=== PATIENT | male | born 1955 | race Caucasian/White ===

== ENCOUNTER 2018-06-01 21:38 | Inpatient (IN) ==
[2018-06-02] MEDS ORDERED: Aluminum/Magnesium/Simethacone Susp 30 ML UDC PO ONE (01:57)
[2018-06-02] MEDS ORDERED: Morphine Sulfate Inj 8 MG/ML Vial IV.PUSH ONE (01:57)
[2018-06-02 02:01] LABS: Hematocrit 36.7 % (39.0-51.0); Hemoglobin 12.1 gm/dL (13.0-17.0); Mean Corpuscular Hemoglobin 27.3 pg (27.0-34.0); Mean Corpuscular Volume 82.6 fL (80.0-100.0); Mean Platelet Volume 6.7 fL (7.0-11.0); Platelet Count 596 th/mm3 (150-450); Red Blood Count 4.44 mil/mm3 (4.50-5.90); Red Cell Distribution Width 16.2 % (11.6-17.2); White Blood Count 12.8 th/mm3 (4.0-11.0)
[2018-06-02 02:18] LABS: Alanine Aminotransferase 18 U/L (12-78); Anion Gap 8 meq/L (5-15); Aspartate Aminotransferase 14 U/L (15-37); Blood Urea Nitrogen 14 mg/dL (7-18); Calcium 8.8 mg/dL (8.5-10.1); Carbon Dioxide 27.3 meq/L (21.0-32.0); Chloride 102 meq/L (98-107); Glucose,Random 111 mg/dL (74-106); Potassium 3.8 meq/L (3.5-5.1); Sodium 137 meq/L (136-145)
[2018-06-02 02:21] LABS: Alkaline Phosphatase 90 U/L (45-117); Lipase 11843 U/L (73-393); Total Protein 8.2 g/dL (6.4-8.2)
[2018-06-02] MEDS ORDERED: Morphine Inj 4 MG/ML Vial IV.PUSH ONE (02:30)
--- NOTE | 2018-06-02 02:55 | ED ---
HPI General Chief Complaint: Abdominal Pain Stated Complaint: stomach cramps Time Seen by Provider: 06/02/18 01:43 Source: patient Mode of arrival: ambulatory Limitations: no limitations History of Present Illness HPI narrative: 62-year-old male arrives to the ED with complaint of epigastric abdominal pain. It is severe. Duration about 24 hours. Pain can come and go. He reports history of heartburn and has been compliant with omeprazole. Nausea is reported. No vomiting. No diarrhea. No fever. Patient reports taking NSAIDs for the last few days in preparation for dental work. Patient is a feels different than heartburn. Her bowel movements are essentially unchanged. No similar prior episode has occurred. Patient reports drinking about 4 alcoholic beverages nightly. MD complaint: abdominal pain Onset (ago): minute(s) Pain Consistency: constant and other (Intermittent episodes of severe pain reported, 10/10 at worst) Related Data Home Medications Medication Instructions Recorded Confirmed atorvastatin [Lipitor] 20 mg PO DAILY 06/02/18 06/02/18 finasteride 5 mg PO DAILY 06/02/18 06/02/18 hydrochlorothiazide 25 mg PO DAILY 06/02/18 06/02/18 losartan 50 mg PO BID 06/02/18 06/02/18 Allergies Allergy/AdvReac Type Severity Reaction Status Date / Time diclofenac Allergy Severe CRAMPS AND Verified 06/02/18 01:38 VOIMTING etodolac Allergy Severe CRAMPS AND Verified 06/02/18 01:38 VOIMTING flurbiprofen Allergy Severe CRAMPS AND Verified 06/02/18 01:38 VOIMTING ibuprofen Allergy Severe CRAMPS AND Verified 06/02/18 01:38 VOIMTING indomethacin Allergy Severe CRAMPS AND Verified 06/02/18 01:38 VOIMTING ketoprofen Allergy Severe CRAMPS AND Verified 06/02/18 01:38 VOIMTING ketorolac Allergy Severe CRAMPS AND Verified 06/02/18 01:38 VOIMTING naproxen Allergy Severe CRAMPS AND Verified 06/02/18 01:38 VOIMTING oxaprozin Allergy Severe CRAMPS AND Verified 06/02/18 01:38 VOIMTING Review of Systems ROS: all other systems reviewed are negative [facility] Medical History Medical History BPH (benign prostatic hyperplasia) (Acute) HTN (hypertension) (Acute) Hyperlipidemia (Acute) Social History Social History Substance History: No History of Abuse Smoking Status: Former smoker Tobacco Type: Cigarettes How Often Do You Have a Drink Containing Alcohol: 4 or more times a week Recent Travel in [facility] within the Last 8 Weeks: No Recent Out of Country Travel within the Last 8 Weeks: No Immunization History Tetanus Immunization: <5 Years Hx Influenza Vaccine This Season: Yes Exam Narrative Exam Narrative: GENERAL: This is a 62-year-old male well-nourished well- developed mild distress secondary to pain SKIN: Focused skin assessment warm/dry. HEAD: Atraumatic. Normocephalic. EYES: Pupils equal and round. No scleral icterus. No injection or drainage. ENT: No nasal bleeding or discharge. Mucous membranes pink and moist. NECK: Trachea midline. No JVD. CARDIOVASCULAR: Regular rate and rhythm. No murmur appreciated. RESPIRATORY: No accessory muscle use. Clear to auscultation. Breath sounds equal bilaterally. GASTROINTESTINAL: Soft. Tenderness palpation epigastrium. MUSCULOSKELETAL: No obvious deformities. No clubbing. No cyanosis. No edema. NEUROLOGICAL: Awake and alert. No obvious cranial nerve deficits. Motor grossly within normal limits. Normal speech. PSYCHIATRIC: Appropriate mood and affect; insight and judgment normal. Course Initial Documented Vital Signs Temperature 97.7 F 06/01/18 23:39 Pulse Rate 98 H 06/01/18 23:39 Respiratory Rate 17 06/01/18 23:39 Blood Pressure 164/76 H 06/01/18 23:39 Pulse Oximetry 99 06/01/18 23:39 Last Documented Vital Signs Temperature 97.7 F 06/01/18 23:39 Pulse Rate 93 H 06/01/18 23:43 Respiratory Rate 18 06/01/18 23:43 Blood Pressure 173/89 H 06/01/18 23:43 Pulse Oximetry 100 06/01/18 23:43 Medical Decision Making MDM Narrative Medical decision making narrative: Patient has pancreatitis. He has no history of pancreatitis. Etiology is unclear however alcohol induced pancreatitis certainly consideration. Mild persistent pain reported at 3:25 AM. Additional morphine ordered, 4 mg. Medical Screen Exam Complete: Yes Emergency Medical Condition: Yes Differential Diagnosis Differential Diagnosis: Gastritis, pancreatitis, appendicitis, acute cholecystitis, ascending cholangitis, AAA, perforated viscous, mesenteric ischemia, hepatitis, cystitis, hydronephrosis/hydroureter/nephroureter calculus , mesenteric adenitis, biliary colic Lab Data Lab results reviewed: Yes I reviewed the patient's lab results. Lab results narrative: Lipase is 11,843 LFTs are normal Result diagrams: 06/02/18 01:45 06/02/18 01:45 Lab Results 06/02/18 06/02/18 Range/Units 01:45 01:45 WBC 12.8 H (4.0-11.0) th/mm3 RBC 4.44 L (4.50-5.90) mil/mm3 Hgb 12.1 L (13.0-17.0) gm/dL Hct 36.7 L (39.0-51.0) % MCV 82.6 (80.0-100.0) fL MCH 27.3 (27.0-34.0) pg MCHC 33.0 (32.0-36.0) % RDW 16.2 (11.6-17.2) % Plt Count 596 H (150-450) th/mm3 MPV 6.7 L (7.0-11.0) fL Sodium 137 (136-145) meq/L Potassium 3.8 (3.5-5.1) meq/L Chloride 102 (98-107) meq/L Carbon Dioxide 27.3 (21.0-32.0) meq/L Anion Gap 8 (5-15) meq/L BUN 14 (7-18) mg/dL Creatinine 0.85 (0.60-1.30) mg/dL Random Glucose 111 H (74-106) mg/dL Calcium 8.8 (8.5-10.1) mg/dL Total Bilirubin 0.2 (0.2-1.0) mg/dL AST 14 L (15-37) U/L ALT 18 (12-78) U/L Alkaline Phosphatase 90 (45-117) U/L Total Protein 8.2 (6.4-8.2) g/dL Albumin 4.0 (3.4-5.0) g/dL Lipase 58820 H (73-393) U/L Imaging Data Attestation: I personally reviewed and interpreted this imaging study as follows : Radiologist's impression: Abdomen/Pelvis CT 06/02/18 01:57 CONCLUSION: 1. Nonspecific inflammatory stranding around the second and third portions of the duodenum possibly representing an acute duodenitis. 2. Diverticular disease of the descending and sigmoid colon without diverticulitis. Discharge Plan Discharge Disposition Patient Disposition: 30 Still Patient Physicians Team ED Provider: Nate Salinas Primary Care Provider: Primary Care Anais Duque Rxs /Orders / Referrals /Forms Prescriptions: No Action losartan 50 mg Tablet 50 mg PO BID RF: 0 atorvastatin [Lipitor] 20 mg Tablet 20 mg PO DAILY RF: 0 hydrochlorothiazide 25 mg Tablet 25 mg PO DAILY RF: 0 finasteride 5 mg Tablet 5 mg PO DAILY RF: 0 Discharge Interventions Interventions: Vital Signs Last Done: 06/01/18 23:43 Status ED Status: With Doctor
--- NOTE | 2018-06-02 03:08 | CT ---
EXAM DATE: 06/02/2018 2:46 AM EDT AGE/SEX: 62 years / Male INDICATIONS: Abdominal pain for 2 days with nausea and vomiting. CLINICAL DATA: This is the patient's initial encounter. Patient reports that signs and symptoms have been present for 2 days and indicates a pain score of 5/10. MEDICAL/SURGICAL HISTORY: Hypertension. Benign prostatic hyperplasia. None. ORAL CONTRAST: No oral contrast ingested. RADIATION DOSE: 6.81 CTDI (mGy) COMPARISON: No prior exams available for comparison. TECHNIQUE: Multiple contiguous axial images were obtained through the abdomen and pelvis following b olus infusion of 70 ml Omnipaque 350 (iohexol) nonionic water-soluble contrast as a single exam dos e. No oral contrast ingested. Using automated exposure control and adjustment of the mA and/or kV ac cording to patient size, radiation dose was kept as low as reasonably achievable to obtain optimal di agnostic quality images. DICOM format image data is available electronically for review and comparis on. FINDINGS: Lower Lungs: The visualized lower lungs are clear. Liver: The liver has a homogeneous density without space-occupying lesion. There is no dilation of th e biliary tree. Spleen: Homogeneous density without enlargement. Pancreas: Unremarkable without mass or calcification. Kidneys: Single subcentimeter calcification in the anterior midpole of the right kidney could be rel ated to the regional vasculature. Benign-appearing 9 mm cortical cyst in the lower pole posteriorly o n the right. Otherwise radiographically intact. Adrenal Glands: Unremarkable. Aorta: The aorta and proximal iliac vessels are grossly unremarkable without aneurysmal dilation. Bowel/Mesentery: Significant diverticular disease of the descending and sigmoid colon without divert iculitis. However, there is some inflammatory stranding around the second and third portions of the d uodenum. Nonspecific but could represent an acute duodenitis Abdominal Wall: Intact. Retroperitoneum: No evidence of adenopathy in the retrocrural, para-aortic, or deep pelvic regions. Bladder: Contours are smooth. Reproductive Organs: Some calcifications of the prostate Inguinal: The inguinal region is unremarkable without evidence of adenopathy. Bony Structures: Unremarkable. Post Contrast: No abnormal areas of enhancement seen. CONCLUSION: 1. Nonspecific inflammatory stranding around the second and third portions of the duodenum possibly representing an acute duodenitis. 2. Diverticular disease of the descending and sigmoid colon without diverticulitis. Electronically signed by: Isma Matthews MD 06/02/2018 3:07 AM EDT
[2018-06-02 03:35] LABS: Bilirubin,Urine Negative (Negative); Clarity,Urine Clear (Clear); Color,Urine Yellow (Yellw/Straw); Glucose,Urine (UA) Negative (Negative); Hyaline Casts,Urine 1 /lpf (0-3); Leukocyte Esterase,Urine Trace (Negative); Mucus,Urine Few /lpf (Occasional); Nitrite,Urine Negative (Negative); Specific Gravity,Urine 1.034 (1.002-1.035)
--- NOTE | 2018-06-02 03:51 | P.HPFP ---
History of Present Illness Primary Care Physician: No Primary Care Physician <Jovany Sewell - 06/02/18 14:10> No Primary Care Physician <Jorge Curiel - 06/02/18 03:51> History of Present Illness: 62-year-old male admitted for pancreatitis with a lipase of 11,843. He presented to the emergency department due to abdominal pain that was progressive over 2 days that he described as stabbing and 10 out of 10 on the pain scale in the epigastric region. He does have a history of heavy alcohol use or he states that he will have several mixed drinks as well as several beers every day. He denies symptoms of withdrawal or going through withdrawals in the past. He states prior to this episode, he has been relatively healthy without any acute illness. He denies fevers or chills. He denies nausea or vomiting. He denies changes in his bowel habits such as diarrhea or constipation. He denies melena or hematochezia. <Jovany Sewell - 06/02/18 14:10> Patient is a 62-year-old male with past history of hypertension, hyperlipidemia , BPH, GERD who presents today for abdominal pain. This pain does not feel like his normal GERD pain. Reports his abdominal pain has been present for approximately 24 hours, stabbing, in the upper middle of his abdomen, rated a 10 out of 10 prior to receiving morphine, improved mildly at this time. He states he threw up one time yesterday, none since. Denies diarrhea, constipation, nausea, additional vomiting, fever, chills, chest pain, shortness of breath, left arm or jaw pain, lightheadedness, dizziness, change in vision, dysuria, changes in urine color or smell. He reports he drinks several beers daily, as well as 1 or more cocktails a day, more if his friends are over. He drinks daily, cannot remember the last time he went more than 1 day without drinking. Denies withdrawal symptoms in the past. History Medical: HTN, HLD, BPH, GERD Surgical: Shoulder , Knee arthroscopy, hemorrhoidectomy Family: Father: Unknown Mother: Passed from bone marrow cancer Social EtOH: Drink a few beers and cocktails, daily Tobacco: Smoke 1PPD for 46 years Drugs:None <Jorge Curiel - 06/02/18 04:41> - Diagnosis (1) Pancreatitis (2) Alcohol dependence (3) Oral infection (4) HTN (hypertension) (5) HLD (hyperlipidemia) (6) BPH (benign prostatic hyperplasia) (7) GERD (gastroesophageal reflux disease) (8) Nutrition, metabolism, and development symptoms (9) DVT prophylaxis <Jovany Sewell 06/02/18 14:10> (1) Pancreatitis (2) Alcohol dependence (3) HTN (hypertension) (4) HLD (hyperlipidemia) (5) BPH (benign prostatic hyperplasia) (6) GERD (gastroesophageal reflux disease) <Jorge Curiel 06/02/18 04:41> Inpatient Certification: I certify that the inpatient services were ordered in accordance with Medicare regulations governing the order. This includes certification that hospital inpatient services are reasonable and necessary and in the case of services not specified as inpatient-only under 42 CFR 419.22(n), that they are appropriately provided as inpatient services in accordance to with the 2-midnight benchmark under 43 CFR 412.3(e) <Jovany Sewell 06/02/18 14:10> Review of Systems Constitutional: Denies body ache(s), Denies chills, Denies fever(s), Denies headache(s), Denies increased appetite, Denies weakness <Jorge Curiel 04:41> Eyes: Denies blind spots, Denies blurry vision, Denies change in vision, Denies double vision, Denies discharge, Denies loss of vision <Jorge Curiel 04:41> Ears, Nose, Mouth, and Throat: Denies abnormal hearing, Denies change in voice, Denies nosebleed, Denies sinus pain <Jorge Curiel 06/02/18 04:41> Cardiovascular: Denies chest pain, Denies excessive sweating, Denies fainting, Denies fast heart rate, Denies generalized swelling, Denies irregular heart rhythm, Denies lightheadedness, Denies rapid, pounding, or irregular heartbeat, Denies shortness of breath <Jorge Curiel 06/02/18 04:41> Respiratory: Denies cough, Denies shortness of breath, Denies wheezing <Jorge Curiel 06/02/18 04:41> Gastrointestinal: Reports abdominal pain, Denies black, tarry stools, Denies bright, red blood in stools, Denies change in bowel habits, Denies change in stools, Denies constipation, Denies nausea, Denies vomiting <Jorge Curiel 06/02/18 04:41> Genitourinary: Denies blood in urine, Denies painful urination, Denies urinary frequency <Jorge Curiel 06/02/18 04:41> Musculoskeletal: Denies abnormal walking, Denies body aches <Jorge Curiel 06/02/18 04:41> Skin/Breast: Denies skin ulcer, Denies sores <Jorge Curiel 06/02/18 04: 41> Neurologic: Denies abnormal hearing, Denies abnormal speech, Denies burning sensations, Denies confusion, Denies fainting, Denies frequent falls, Denies loss of vision <Jorge Curiel 06/02/18 04:41> Psychiatric: Denies anxiety, Denies confusion <Jorge Curiel 06/02/18 04: 41> Endocrine: Denies cold intolerance, Denies excessive sweating, Denies flushing <Jorge Curiel 06/02/18 04:41> Hematologic/Lymphatic: Denies easy bleeding, Denies easy bruising <Jorge Curiel 06/02/18 04:41> PMFSH - History History Provided By: Patient <Jorge Curiel 06/02/18 03:51> - Medical History Medical History: Medical History (Last Updated 06/01/18 @ 23:42 by Adrien Rebolledo) BPH (benign prostatic hyperplasia) HTN (hypertension) Hyperlipidemia <Jovany Sewell 06/02/18 14:10> Medical History (Last Updated 06/01/18 @ 23:42 by Adrien Rebolledo) BPH (benign prostatic hyperplasia) HTN (hypertension) Hyperlipidemia <Jorge Curiel 06/02/18 03:51> - Tobacco History Smoking Status: Former smoker <Jorge Curiel 06/02/18 03:51> Tobacco Type: Cigarettes <Jorge Curiel 06/02/18 03:51> - Alcohol History How Often Do You Have a Drink Containing Alcohol: 4 or more times a week < Jorge Curiel 06/02/18 03:51> - Substance Use History Substance History: No History of Abuse <Jorge Curiel - 06/02/18 03:51> - Travel History Recent Travel in the [place] Within the Last 8 Weeks: No <Jorge Curiel 06/02 03:51> Recent Travel Out of the Country Within the Last 8 Weeks: No <Jorge Curiel 06/02/18 03:51> - Immunization History Tetanus Immunization: <5 Years <Jorge Curiel 06/02/18 03:51> Hx Influenza Vaccine This Season: Yes <Jorge Curiel 06/02/18 03:51> Medications and Allergies Allergies Allergy/AdvReac Type Severity Reaction Status Date / Time diclofenac Allergy Severe CRAMPS AND Verified 06/02/18 01:38 VOIMTING etodolac Allergy Severe CRAMPS AND Verified 06/02/18 01:38 VOIMTING flurbiprofen Allergy Severe CRAMPS AND Verified 06/02/18 01:38 VOIMTING ibuprofen Allergy Severe CRAMPS AND Verified 06/02/18 01:38 VOIMTING indomethacin Allergy Severe CRAMPS AND Verified 06/02/18 01:38 VOIMTING ketoprofen Allergy Severe CRAMPS AND Verified 06/02/18 01:38 VOIMTING ketorolac Allergy Severe CRAMPS AND Verified 06/02/18 01:38 VOIMTING naproxen Allergy Severe CRAMPS AND Verified 06/02/18 01:38 VOIMTING oxaprozin Allergy Severe CRAMPS AND Verified 06/02/18 01:38 VOIMTING <Jovany Sewell - 06/02/18 14:10> Home Medications Medication Instructions Recorded Confirmed Type amlodipine [Norvasc] 10 mg PO DAILY 06/02/18 06/02/18 History atorvastatin [Lipitor] 20 mg PO HS 06/02/18 06/02/18 History finasteride 5 mg PO DAILY 06/02/18 06/02/18 History hydrochlorothiazide 25 mg PO DAILY 06/02/18 06/02/18 History losartan 50 mg PO BID 06/02/18 06/02/18 History <Jovany Sewell - 06/02/18 14:10> Active Medications: Active Medications Amlodipine Besylate (Norvasc) 10 mg PO DAILY [facility] Last Admin: 06/02/18 08:42 Dose: 10 mg Atorvastatin Calcium (Lipitor) 20 mg PO DAILY [facility] Last Admin: 06/02/18 08:42 Dose: 20 mg Clonidine HCl (Catapres) 0.1 mg PO Q6H PRN PRN Reason: BP >180/110 Finasteride (Proscar) 5 mg PO DAILY [facility] Last Admin: 06/02/18 08:43 Dose: 5 mg Flumazenil (Romazecon Inj) 0.2 mg IV.PUSH Q1M PRN PRN Reason: OVERSEDATION Haloperidol Lactate (Haldol Inj) 1 mg IV.PUSH Q15M PRN PRN Reason: for severe agitation Heparin Sodium (Porcine) (Heparin Inj) 5,000 units SQ Q12HR [facility] Last Admin: 06/02/18 08:43 Dose: 5,000 units Hydrochlorothiazide (Hydrodiuril) 25 mg PO DAILY [facility] Last Admin: 06/02/18 08:43 Dose: 25 mg Lactated Ringer's (Lr 1000 Ml Inj) 1,000 mls @ 176 mls/hr IV.CONT .Q5H41M [facility] Last Admin: 06/02/18 11:40 Dose: 176 mls/hr Lorazepam (Ativan) 1 mg PO Q4H PRN PRN Reason: for CIWA 8-10 Lorazepam (Ativan) 2 mg PO Q2H PRN PRN Reason: for CIWA 11-14 Lorazepam (Ativan Inj) 2 mg IV.PUSH Q2H PRN PRN Reason: for CIWA 11-14 Lorazepam (Ativan Inj) 2 mg IV.PUSH Q1H PRN PRN Reason: for CIWA 15-20 Lorazepam (Ativan Inj) 2 mg IV.PUSH Q15M PRN PRN Reason: for CIWA > 20 Lorazepam (Ativan Inj) 1 mg IV.PUSH Q4H PRN PRN Reason: for CIWA 8-10 Losartan Potassium (Cozaar) 50 mg PO BID [facility] Last Admin: 06/02/18 08:43 Dose: 50 mg Morphine Sulfate (Morphine Inj) 4 mg IV.PUSH Q3H PRN PRN Reason: BREAKTHROUGH PAIN Naloxone HCl (Narcan Inj) 0.4 mg IV.PUSH UNSCH PRN PRN Reason: SEE LABEL COMMENTS Ondansetron HCl (Zofran Inj) 4 mg IV.PUSH Q6H PRN PRN Reason: NAUSEA OR VOMITING Last Admin: 06/02/18 06:02 Dose: 4 mg Oxycodone/Acetaminophen (Percocet 10/325 Mg) 1 tab PO Q6H PRN PRN Reason: PAIN SCALE 6 TO 10 Last Admin: 06/02/18 11:40 Dose: 1 tab Oxycodone/Acetaminophen (Percocet 5/325 Mg) 1 tab PO Q6H PRN PRN Reason: PAIN SCALE 3 TO 5 Penicillin V Potassium (Veetids) 500 mg PO Q6HR [facility] Last Admin: 06/02/18 12:09 Dose: 500 mg Sodium Chloride (Ns Flush) 2 ml IV.FLUSH BID [facility] Last Admin: 06/02/18 08:43 Dose: Not Given Sodium Chloride (Ns Flush) 2 ml IV.FLUSH PRN PRN PRN Reason: FLUSH AFTER USING IV ACCESS <Jovany Sewell - 06/02/18 14:10> Exam Vital signs: Vital Signs 06/01/18 23:39 06/01/18 23:43 06/02/18 05:30 Temperature 97.7 F 98.3 F Pulse Rate 98 H 93 H 85 Respiratory Rate 17 18 18 Blood Pressure 164/76 H 173/89 H 161/80 H Pulse Oximetry 99 100 96 06/02/18 07:00 06/02/18 08:00 06/02/18 12:00 Temperature 98.2 F 98.1 F Pulse Rate 87 100 H Respiratory Rate 20 20 19 Blood Pressure 151/78 H 136/76 Pulse Oximetry 95 93 L Intake & Output 06/01/18 06/02/18 06/02/18 18:59 06:59 18:59 Intake Total 1999 Balance 1999 Weight 77.1 kg Intake: IV 1999 NS Inj 1,000 ML @ 176 mls/hr IV 1999 .CONT .Q5H41M [facility] Rx#:[id number] Other: Date of Last Bowel Movement 06/01/18 06/01/18 Weight On Admission 77.1 kg <Jovany Sewell - 06/02/18 14:10> Vital Signs 06/01/18 23:39 06/01/18 23:43 Temperature 97.7 F Pulse Rate 98 H 93 H Respiratory Rate 17 18 Blood Pressure 164/76 H 173/89 H Pulse Oximetry 99 100 Intake & Output 06/01/18 06/01/18 06/02/18 06:59 18:59 06:59 Weight 77.111 kg <Jorge Curiel - 06/02/18 03:51> Narrative: General: Lying in bed in no obvious distress Skin: No obvious lesions, no telangiectasias, no caput medusa Abdomen: Soft, distended with moderate pain in the right upper quadrant and epigastric region. No rebound or guarding CV: Regular rate and rhythm without murmur Pulmonary: Her to auscultation bilaterally without overt rhonchi or rales <Jovany Sewell - 06/02/18 14:10> GENERAL: Laying in bed, resting comfortably SKIN: Warm and dry. HEAD: Atraumatic. Normocephalic. EYES: Pupils equal and round. No scleral icterus. No injection or drainage. ENT: No nasal bleeding or discharge. Mucous membranes pink and moist. NECK: Trachea midline. No JVD. CARDIOVASCULAR: Regular rate and rhythm. RESPIRATORY: No accessory muscle use. Clear to auscultation. Breath sounds equal bilaterally. GASTROINTESTINAL: Abdomen soft, nondistended. Tender in mid epigastric area. No rebound. Negative Rovsing's, McBurney's, Nelson's. Hepatic and splenic margins not palpable. MUSCULOSKELETAL: Extremities without clubbing, cyanosis, or edema. No obvious deformities. NEUROLOGICAL: Awake and alert. No obvious cranial nerve deficits. Motor grossly within normal limits. Five out of 5 muscle strength in the arms and legs. Normal speech. PSYCHIATRIC: Appropriate mood and affect; insight and judgment normal. <Jorge Curiel - 06/02/18 04:41> Results - Labs Result diagrams: 06/02/18 01:45 06/02/18 01:45 <DonatoJovany - 06/02/18 14:10> Abnormal lab results 06/02/18 06/02/18 06/02/18 Range/Units 01:45 01:45 03:15 WBC 12.8 H (4.0-11.0) th/mm3 RBC 4.44 L (4.50-5.90) mil/mm3 Hgb 12.1 L (13.0-17.0) gm/dL Hct 36.7 L (39.0-51.0) % Plt Count 596 H (150-450) th/mm3 MPV 6.7 L (7.0-11.0) fL Random Glucose 111 H (74-106) mg/dL AST 14 L (15-37) U/L Lipase 05550 H (73-393) U/L Urine Protein 30 H (Neg-Trace) mg/dL Ur Leukocyte Esterase Trace H (Negative) Urine Mucus Few H (Occasional) /lpf Short CBC 06/02/18 Range/Units 01:45 WBC 12.8 H (4.0-11.0) th/mm3 Hgb 12.1 L (13.0-17.0) gm/dL Hct 36.7 L (39.0-51.0) % Plt Count 596 H (150-450) th/mm3 BMP 06/02/18 01:45 Sodium 137 Potassium 3.8 Chloride 102 Carbon Dioxide 27.3 BUN 14 Creatinine 0.85 Calcium 8.8 Liver Function 06/02/18 Range/Units 01:45 Total Bilirubin 0.2 (0.2-1.0) mg/dL AST 14 L (15-37) U/L ALT 18 (12-78) U/L Alkaline Phosphatase 90 (45-117) U/L Albumin 4.0 (3.4-5.0) g/dL Urine 06/02/18 Range/Units 03:15 Urine Color Yellow (Yellw/Straw) Urine Clarity Clear (Clear) Urine pH 6.0 (5.0-8.5) Ur Specific [place] 1.034 (1.002-1.035) Urine Protein 30 H (Neg-Trace) mg/dL Urine Glucose (UA) Negative (Negative) mg/dL <Jovany Sewell - 06/02/18 14:10> Abnormal lab results 06/02/18 06/02/18 06/02/18 Range/Units 01:45 01:45 03:15 WBC 12.8 H (4.0-11.0) th/mm3 RBC 4.44 L (4.50-5.90) mil/mm3 Hgb 12.1 L (13.0-17.0) gm/dL Hct 36.7 L (39.0-51.0) % Plt Count 596 H (150-450) th/mm3 MPV 6.7 L (7.0-11.0) fL Random Glucose 111 H (74-106) mg/dL AST 14 L (15-37) U/L Lipase 74471 H (73-393) U/L Urine Protein 30 H (Neg-Trace) mg/dL Ur Leukocyte Esterase Trace H (Negative) Urine Mucus Few H (Occasional) /lpf Short CBC 06/02/18 Range/Units 01:45 WBC 12.8 H (4.0-11.0) th/mm3 Hgb 12.1 L (13.0-17.0) gm/dL Hct 36.7 L (39.0-51.0) % Plt Count 596 H (150-450) th/mm3 BMP 06/02/18 01:45 Sodium 137 Potassium 3.8 Chloride 102 Carbon Dioxide 27.3 BUN 14 Creatinine 0.85 Calcium 8.8 Liver Function 06/02/18 Range/Units 01:45 Total Bilirubin 0.2 (0.2-1.0) mg/dL AST 14 L (15-37) U/L ALT 18 (12-78) U/L Alkaline Phosphatase 90 (45-117) U/L Albumin 4.0 (3.4-5.0) g/dL Urine 06/02/18 Range/Units 03:15 Urine Color Yellow (Yellw/Straw) Urine Clarity Clear (Clear) Urine pH 6.0 (5.0-8.5) Ur Specific [place] 1.034 (1.002-1.035) Urine Protein 30 H (Neg-Trace) mg/dL Urine Glucose (UA) Negative (Negative) mg/dL <Jorge Curiel - 06/02/18 03:51> - Imaging Impressions Abdomen/Pelvis CT 06/02/18 01:57 CONCLUSION: 1. Nonspecific inflammatory stranding around the second and third portions of the duodenum possibly representing an acute duodenitis. 2. Diverticular disease of the descending and sigmoid colon without diverticulitis. <Jovany Sewell - 06/02/18 14:10> Impressions Abdomen/Pelvis CT 06/02/18 01:57 CONCLUSION: 1. Nonspecific inflammatory stranding around the second and third portions of the duodenum possibly representing an acute duodenitis. 2. Diverticular disease of the descending and sigmoid colon without diverticulitis. <Jorge Curiel - 06/02/18 03:51> Caprini VTE Risk Assessment Caprini VTE Risk Assessment: Moderate/High Risk (score >= 2) <Jorge Curiel - 06/02/18 03:51> [place] Risk Assessment Model: Point Value = 1 Point Value = 2 Point Value = 3 Point Value = 5 Age 41-60 Minor surgery BMI > 25 kg/m2 Swollen legs Varicose veins or History of unexplained or recurrent spontaneous Oral contraceptives or hormone replacement Sepsis (< 1 month) Serious lung disease, including pneumonia (< 1 month) Abnormal pulmonary function Acute myocardial infarction Congestive heart failure (< 1 month) History of inflammatory bowel disease Medical patient at bed rest Age 61-74 Arthroscopic surgery Major open surgery (> 45 min) Laparoscopic surgery (> 45 min) Malignancy Confined to bed (> 72 hours) Immobilizing plaster cast Central venous access Age >= 75 History of VTE Family history of VTE Factor V Leiden Prothrombin [id number] Lupus anticoagulant Anticardiolipin antibodies Elevated serum homocysteine Heparin-induced thrombocytopenia Other congenital or acquired thrombophilia Stroke (< 1 month) Elective arthroplasty Hip, pelvis, or leg fracture Acute spinal cord injury (< 1 month) <Jovany Sewell - 06/02/18 14:10> Point Value = 1 Point Value = 2 Point Value = 3 Point Value = 5 Age 41-60 Minor surgery BMI > 25 kg/m2 Swollen legs Varicose veins or History of unexplained or recurrent spontaneous Oral contraceptives or hormone replacement Sepsis (< 1 month) Serious lung disease, including pneumonia (< 1 month) Abnormal pulmonary function Acute myocardial infarction Congestive heart failure (< 1 month) History of inflammatory bowel disease Medical patient at bed rest Age 61-74 Arthroscopic surgery Major open surgery (> 45 min) Laparoscopic surgery (> 45 min) Malignancy Confined to bed (> 72 hours) Immobilizing plaster cast Central venous access Age >= 75 History of VTE Family history of VTE Factor V Leiden Prothrombin [id number] Lupus anticoagulant Anticardiolipin antibodies Elevated serum homocysteine Heparin-induced thrombocytopenia Other congenital or acquired thrombophilia Stroke (< 1 month) Elective arthroplasty Hip, pelvis, or leg fracture Acute spinal cord injury (< 1 month) <Jorge Curiel - 06/02/18 03:51> Prophylaxis Regimen: Total Risk Factor Score Risk Level Prophylaxis Regimen 0-1 Low Early ambulation 2 Moderate Order ONE of the following: *Sequential Compression Device (SCD) *Heparin 5000 units SQ BID 3-4 Higher Order ONE of the following medications: *Heparin 5000 units SQ TID *Enoxaparin/Lovenox 40 mg SQ daily (WT < 150 kg, CrCl > 30 mL/min) *Enoxaparin/Lovenox 30 mg SQ daily (WT < 150 kg, CrCl > 10-29 mL/min) *Enoxaparin/Lovenox 30 mg SQ BID (WT < 150 kg, CrCl > 30 mL/min) AND/OR *Sequential Compression Device (SCD) 5 or more Highest Order ONE of the following medications: *Heparin 5000 units SQ TID (Preferred with Epidurals) *Enoxaparin/Lovenox 40 mg SQ daily (WT < 150 kg, CrCl > 30 mL/min) *Enoxaparin/Lovenox 30 mg SQ daily (WT < 150 kg, CrCl > 10-29 mL/min) *Enoxaparin/Lovenox 30 mg SQ BID (WT < 150 kg, CrCl > 30 mL/min) AND *Sequential Compression Device (SCD) <Jovany Sewell - 06/02/18 14:10> Total Risk Factor Score Risk Level Prophylaxis Regimen 0-1 Low Early ambulation 2 Moderate Order ONE of the following: *Sequential Compression Device (SCD) *Heparin 5000 units SQ BID 3-4 Higher Order ONE of the following medications: *Heparin 5000 units SQ TID *Enoxaparin/Lovenox 40 mg SQ daily (WT < 150 kg, CrCl > 30 mL/min) *Enoxaparin/Lovenox 30 mg SQ daily (WT < 150 kg, CrCl > 10-29 mL/min) *Enoxaparin/Lovenox 30 mg SQ BID (WT < 150 kg, CrCl > 30 mL/min) AND/OR *Sequential Compression Device (SCD) 5 or more Highest Order ONE of the following medications: *Heparin 5000 units SQ TID (Preferred with Epidurals) *Enoxaparin/Lovenox 40 mg SQ daily (WT < 150 kg, CrCl > 30 mL/min) *Enoxaparin/Lovenox 30 mg SQ daily (WT < 150 kg, CrCl > 10-29 mL/min) *Enoxaparin/Lovenox 30 mg SQ BID (WT < 150 kg, CrCl > 30 mL/min) AND *Sequential Compression Device (SCD) <Jorge Curiel - 06/02/18 03:51> Assessment and Plan - Assessment (1) Pancreatitis Code(s): K85.90 - Acute pancreatitis without necrosis or infection, unspecified Status: Acute Plan: Acute pancreatitis with lipase of 11,843 likely secondary to alcohol intake Lipid panel shows an LDL of 65 with triglycerides of 84 Patient is [facility] Continue IV fluids with lactated Ringer's at 1.5 maintenance rate Pain control: Percocet 5/325 every 6 hours as needed for pain 3-5 Percocet 10/325 every 6 hours as needed for pain 6-10 Morphine 4 mg IV every 3 hours as needed for breakthrough pain Modified bowel rest with sips of liquids and advance to liquid diet as tolerated (2) Alcohol dependence Code(s): F10.20 - Alcohol dependence, uncomplicated Status: Acute Plan: Monitor for withdrawals and patient is on [facility] protocol (3) Oral infection Code(s): K12.2 - Cellulitis and abscess of mouth Status: Acute (4) HTN (hypertension) Code(s): I10 - Essential (primary) hypertension Status: Acute (5) HLD (hyperlipidemia) Code(s): E78.5 - Hyperlipidemia, unspecified Status: Acute (6) BPH (benign prostatic hyperplasia) Code(s): N40.0 - Benign prostatic hyperplasia without lower urinary tract symptoms Status: Acute (7) GERD (gastroesophageal reflux disease) Code(s): K21.9 - Gastro-esophageal reflux disease without esophagitis Status: Acute (8) Nutrition, metabolism, and development symptoms Code(s): R63.8 - Other symptoms and signs concerning food and fluid intake Status: Acute (9) DVT prophylaxis Status: Acute <Jovany Sewell - 06/02/18 14:10> (1) Pancreatitis Code(s): K85.90 - Acute pancreatitis without necrosis or infection, unspecified Status: Acute Plan: Patient with pancreatitis. No previous episodes. Likely secondary to alcohol. Lipase 22140 on admission. -Follow-up lipid panel -Fluids at 5 mL/kg/h -Morphine pain scale -N.p.o. for now, can advance as tolerated (2) Alcohol dependence Code(s): F10.20 - Alcohol dependence, uncomplicated Status: Acute Plan: History of daily alcohol use, no previous withdrawal symptoms. Has not been off of alcohol for extended amount time. -[facility] protocol (3) HTN (hypertension) Code(s): I10 - Essential (primary) hypertension Status: Acute Plan: History of hypertension. -Continue hydrochlorothiazide 25 mg daily, losartan 50 mg twice daily (4) HLD (hyperlipidemia) Code(s): E78.5 - Hyperlipidemia, unspecified Status: Acute Plan: History of hyperlipidemia -Continue atorvastatin 20 mg daily (5) BPH (benign prostatic hyperplasia) Code(s): N40.0 - Benign prostatic hyperplasia without lower urinary tract symptoms Status: Acute Plan: History of BPH. -Continue finasteride 5 mg daily (6) GERD (gastroesophageal reflux disease) Code(s): K21.9 - Gastro-esophageal reflux disease without esophagitis Status: Acute Plan: History of GERD -Continue omeprazole 40 mg daily <Jorge Curiel - 06/02/18 04:41> - Attending Attestation The exam, history, and the medical decision-making described in the above note were completed with the assistance of the resident physician. I reviewed and agree with the findings presented. I attest that I had a [id number] encounter with the patient on the same day, and personally performed and documented my assessment and findings in the medical record. <Jovany Sewell - 06/02/18 14:10>
[2018-06-02] MEDS ORDERED: Naloxone Inj 0.4 MG/ML Vial IV.PUSH PRN ×2 (04:23→10:54)
[2018-06-02] MEDS ORDERED: Morphine Sulfate Inj 2 MG/ML Vial IV.PUSH PRN (04:23)
[2018-06-02] MEDS ORDERED: Haloperidol Inj 5 MG/ML Ampul IV.PUSH PRN (04:36)
[2018-06-02] MEDS ORDERED: LORazepam 1 MG Tablet PO PRN (04:36)
[2018-06-02 04:43] LABS: Chol/HDL Ratio 2.56 Ratio; HDL Cholesterol 52.3 mg/dL (40.0-60.0)
[2018-06-02] MEDS: Sod Chloride 0.9% Inj 1,000 ML IV.CONT SCH ×3 (06:02→14:17)
[2018-06-02] MEDS: Morphine Inj 4 MG/ML Vial IV.PUSH PRN ×4 (06:02→21:41)
[2018-06-02] MEDS: amLODIPine 10 MG Tablet PO SCH (08:42)
[2018-06-02] MEDS: Finasteride 5 MG Tablet PO SCH (08:43)
[2018-06-02] MEDS: hydroCHLOROthiazide 25 MG Tablet PO SCH (08:43)
[2018-06-02] MEDS: Heparin - SQ 10,000 UNITS/ML Vial SQ SCH ×2 (08:43→21:40)
--- NOTE | 2018-06-02 11:16 | P.PNFP ---
Subjective Interval history: Patient seen and examined this morning. No acute events overnight per nursing staff. Patient states that since being admitted, his pain has improved. He continues to report intermittent pain superior to his umbilicus that radiates around both sides of his body to his back. He states that he is approximately 50% better and is very thirsty this morning. He feels that the morphine worked for approximately 2 out of 3 hours, but the last hour he is in need of more medication. We briefly discussed his past medical history and home medications. Patient does report a chronic history of alcohol use drinking multiple mixed drinks as well as a few beers per day. He reports no prior hospitalizations for alcohol withdrawal with his last alcoholic drink coming yesterday afternoon. He also reports that he had a tooth extracted earlier this week and was placed on antibiotic therapy, however he is unsure of the medication at this time, but does state that it is "some type of penicillin." Otherwise he has no acute complaints and denies any fevers, chills, chest pain, NVD, abdominal pain, tremor, diaphoresis, visual/auditory hallucinations, or calf tenderness. Results - Labs Result diagrams: 06/02/18 01:45 06/02/18 01:45 Abnormal lab results 06/02/18 06/02/18 06/02/18 Range/Units 01:45 01:45 03:15 WBC 12.8 H (4.0-11.0) th/mm3 RBC 4.44 L (4.50-5.90) mil/mm3 Hgb 12.1 L (13.0-17.0) gm/dL Hct 36.7 L (39.0-51.0) % Plt Count 596 H (150-450) th/mm3 MPV 6.7 L (7.0-11.0) fL Random Glucose 111 H (74-106) mg/dL AST 14 L (15-37) U/L Lipase 73415 H (73-393) U/L Urine Protein 30 H (Neg-Trace) mg/dL Ur Leukocyte Esterase Trace H (Negative) Urine Mucus Few H (Occasional) /lpf Short CBC 06/02/18 Range/Units 01:45 WBC 12.8 H (4.0-11.0) th/mm3 Hgb 12.1 L (13.0-17.0) gm/dL Hct 36.7 L (39.0-51.0) % Plt Count 596 H (150-450) th/mm3 BMP 06/02/18 01:45 Sodium 137 Potassium 3.8 Chloride 102 Carbon Dioxide 27.3 BUN 14 Creatinine 0.85 Calcium 8.8 Liver Function 06/02/18 Range/Units 01:45 Total Bilirubin 0.2 (0.2-1.0) mg/dL AST 14 L (15-37) U/L ALT 18 (12-78) U/L Alkaline Phosphatase 90 (45-117) U/L Albumin 4.0 (3.4-5.0) g/dL Urine 06/02/18 Range/Units 03:15 Urine Color Yellow (Yellw/Straw) Urine Clarity Clear (Clear) Urine pH 6.0 (5.0-8.5) Ur Specific [place] 1.034 (1.002-1.035) Urine Protein 30 H (Neg-Trace) mg/dL Urine Glucose (UA) Negative (Negative) mg/dL - Imaging Impressions Abdomen/Pelvis CT 06/02/18 01:57 CONCLUSION: 1. Nonspecific inflammatory stranding around the second and third portions of the duodenum possibly representing an acute duodenitis. 2. Diverticular disease of the descending and sigmoid colon without diverticulitis. Physical Exam Vital signs: Vital Signs 06/01/18 23:39 06/01/18 23:43 06/02/18 05:30 Temperature 97.7 F 98.3 F Pulse Rate 98 H 93 H 85 Respiratory Rate 17 18 18 Blood Pressure 164/76 H 173/89 H 161/80 H Pulse Oximetry 99 100 96 06/02/18 07:00 Temperature 98.2 F Pulse Rate 87 Respiratory Rate 20 Blood Pressure 151/78 H Pulse Oximetry 95 Intake & Output 06/01/18 06/02/18 06/02/18 18:59 06:59 18:59 Intake Total 1000 / 1000 Balance 1000 / 1000 Weight 77.1 kg Intake: IV 1000 / 1000 NS Inj 1,000 ML @ 335 mls/hr IV 1000 / 1000 .CONT .Q3H [facility] Rx#:[id number] Other: Date of Last Bowel Movement 06/01/18 Weight On Admission 77.1 kg Narrative: GENERAL: Well-nourished, well-developed male lying in bed watching television in no acute distress. SKIN: Warm and dry. No rash. HEENT: Atraumatic, normocephalic with extraocular motions intact. No rhinorrhea. No visible lymphadenopathy or jugulovenous distension appreciated. CARDIOVASCULAR: Regular rate and rhythm without obvious murmurs, gallops, or rubs. 2+ pulses in all four extremities. RESPIRATORY: Expiratory and inspiratory wheezing bilaterally. No increased work of breathing. No crackles or rhonchi. GASTROINTESTINAL: Abdomen soft with positive bowel sounds in all 4 quadrants. Patient tender to deep palpation just superior to the umbilicus and in the left upper quadrant focally. No guarding. No tenderness at McBurney's point. Negative Nelson sign. Patient endorses pain with testing rebound tenderness. MUSCULOSKELETAL: No cyanosis or edema. No calf tenderness. Ambulating well per report. NEURO/PSYCH: Afocal. Awake, alert, and oriented x3. Normal speech and judgement. No tremor, diaphoresis, auditory/visual hallucinations, or paresthesia appreciated. Assessment and Plan - Assessment (1) Pancreatitis Code(s): K85.90 - Acute pancreatitis without necrosis or infection, unspecified Status: Acute Plan: Patient with pancreatitis. No previous episodes. Likely secondary to alcohol. -Lipase 68442 on admission. -Lipid panel within normal limits -Patient states that he has thirsty and would like to attempt clear liquid diet at this time Medications: -LR at 176 mL/kg/h (1.5 maintenance fluids) -Oxycodone 5 mg as needed for pain 1-5/oxycodone 10 mg as needed for pain 6-10 -Morphine 4 mg as needed as needed for breakthrough pain or unable to take oral medications -Naloxone on as needed for respiratory depression (2) Alcohol dependence Code(s): F10.20 - Alcohol dependence, uncomplicated Status: Acute Plan: History of daily alcohol use, no previous withdrawal symptoms. Last drink on . -[facility] protocol (3) Oral infection Code(s): K12.2 - Cellulitis and abscess of mouth Status: Acute Plan: Patient reporting recent procedure for abscessed tooth. Patient also reports he is to be on a "penicillin antibiotic every 6 hours." -Patient initially met sepsis criteria with leukocytosis and tachycardia with suspected site of infection being his oral cavity, lactic acid was not obtained -Patient does not meet sepsis criteria at this time Medications: -Penicillin 500mg Q6H (4) HTN (hypertension) Code(s): I10 - Essential (primary) hypertension Status: Acute Plan: History of hypertension. -Continue amlodipine 10 mg daily, hydrochlorothiazide 25 mg daily, losartan 50 mg twice daily (5) HLD (hyperlipidemia) Code(s): E78.5 - Hyperlipidemia, unspecified Status: Acute Plan: History of hyperlipidemia -Lipid panel within normal limits -Continue atorvastatin 20 mg daily (6) BPH (benign prostatic hyperplasia) Code(s): N40.0 - Benign prostatic hyperplasia without lower urinary tract symptoms Status: Acute Plan: History of BPH. -Continue finasteride 5 mg daily (7) GERD (gastroesophageal reflux disease) Code(s): K21.9 - Gastro-esophageal reflux disease without esophagitis Status: Acute Plan: History of GERD -Continue omeprazole 40 mg daily (8) Nutrition, metabolism, and development symptoms Code(s): R63.8 - Other symptoms and signs concerning food and fluid intake Status: Acute Plan: Diet: Clear liquid diet as tolerated Fluids: LR at 176 milliliters per hour Electrolytes: Within normal limits, continue to monitor and replete as necessary -Prophylaxis: CIWA protocol, Naloxone as needed for respiratory depression, Zofran as needed for nausea/vomiting, clonidine as needed for blood pressure greater than 180/110 (9) DVT prophylaxis Status: Acute Plan: -SCDs Medications: Heparin 5000 units every 12 hours
[2018-06-02] MEDS: oxyCODONE/Acetaminophen 10/325 Tablet PO PRN ×3 (11:40→23:55)
[2018-06-03] MEDS: Morphine Inj 4 MG/ML Vial IV.PUSH PRN ×2 (04:05→06:54)
[2018-06-03] MEDS: oxyCODONE/Acetaminophen 10/325 Tablet PO PRN ×3 (05:38→17:45)
[2018-06-03 05:47] LABS: Baso # (Auto) 0.1 th/mm3 (0.0-0.2); Baso % (Auto) 0.5 % (0.0-2.0); Eos # (Auto) 0.2 th/mm3 (0.0-0.4); Eos % (Auto) 1.6 % (0.0-4.0); Hematocrit 33.2 % (39.0-51.0); Lymph # (Auto) 0.9 th/mm3 (1.0-4.8); Lymph % (Auto) 7.4 % (9.0-44.0); Mean Corpuscular HGB Conc 33.2 % (32.0-36.0); Mean Corpuscular Hemoglobin 27.6 pg (27.0-34.0); Mean Corpuscular Volume 83.1 fL (80.0-100.0); Mean Platelet Volume 6.7 fL (7.0-11.0); Mono # (Auto) 0.9 th/mm3 (0.0-0.9); Mono % (Auto) 7.6 % (0.0-8.0); Neut # (Auto) 10.2 th/mm3 (1.8-7.7); Neut % (Auto) 82.9 % (16.0-70.0); Platelet Count 541 th/mm3 (150-450); Red Blood Count 3.99 mil/mm3 (4.50-5.90); Red Cell Distribution Width 16.4 % (11.6-17.2); White Blood Count 12.3 th/mm3 (4.0-11.0)
[2018-06-03 06:16] LABS: Anion Gap 11 meq/L (5-15); Blood Urea Nitrogen 6 mg/dL (7-18); Calcium 8.1 mg/dL (8.5-10.1); Carbon Dioxide 28.4 meq/L (21.0-32.0); Chloride 99 meq/L (98-107); Glomerular Filtration Rate Greater Than 89 mL/min (>89); Glucose,Random 83 mg/dL (74-106); Potassium 3.2 meq/L (3.5-5.1); Sodium 138 meq/L (136-145)
[2018-06-03] MEDS: Finasteride 5 MG Tablet PO SCH (10:41)
[2018-06-03] MEDS: hydroCHLOROthiazide 25 MG Tablet PO SCH (10:41)
[2018-06-03] MEDS: amLODIPine 10 MG Tablet PO SCH (10:41)
[2018-06-03] MEDS: Heparin - SQ 10,000 UNITS/ML Vial SQ SCH ×2 (10:42→21:50)
--- NOTE | 2018-06-03 11:39 | P.PNFP ---
Subjective Interval history: Patient seen and examined this morning by medical team. No acute events overnight per nursing staff. Patient states that he is doing well and feels "80 % better from admission." He states that his baseline pain has resolved, however he does have some right sided flank pain intermittently that is very sharp and exacerbated by movement. He denies any dysuria, hematuria at this time. Patient states that he tolerated the clear liquid diet well and is agreeable to progressing his diet. He expresses the desire to be discharged home today, however medical team discussed with patient he is requiring breakthrough morphine quite frequently as well as currently on maintenance fluids. Therefore medical team plans to de-escalate care, continue to monitor, with possible discharge late today versus early tomorrow morning pending clinical course. <Krzysztof De H - 06/03/18 11:39> Results - Labs Result diagrams: 06/03/18 05:20 06/03/18 05:20 <Jovany Sewell - 06/03/18 11:43> Abnormal lab results 06/03/18 06/03/18 Range/Units 05:20 05:20 WBC 12.3 H (4.0-11.0) th/mm3 RBC 3.99 L (4.50-5.90) mil/mm3 Hgb 11.0 L (13.0-17.0) gm/dL Hct 33.2 L (39.0-51.0) % Plt Count 541 H (150-450) th/mm3 MPV 6.7 L (7.0-11.0) fL Neut % (Auto) 82.9 H (16.0-70.0) % Lymph % (Auto) 7.4 L (9.0-44.0) % Neut # (Auto) 10.2 H (1.8-7.7) th/mm3 Lymph # (Auto) 0.9 L (1.0-4.8) th/mm3 Potassium 3.2 L (3.5-5.1) meq/L BUN 6 L (7-18) mg/dL Calcium 8.1 L (8.5-10.1) mg/dL Short CBC 06/03/18 Range/Units 05:20 WBC 12.3 H (4.0-11.0) th/mm3 Hgb 11.0 L (13.0-17.0) gm/dL Hct 33.2 L (39.0-51.0) % Plt Count 541 H (150-450) th/mm3 BMP 06/03/18 05:20 Sodium 138 Potassium 3.2 L Chloride 99 Carbon Dioxide 28.4 BUN 6 L Creatinine 0.78 Calcium 8.1 L <Jovany Sewell - 06/03/18 11:43> Abnormal lab results 06/03/18 06/03/18 Range/Units 05:20 05:20 WBC 12.3 H (4.0-11.0) th/mm3 RBC 3.99 L (4.50-5.90) mil/mm3 Hgb 11.0 L (13.0-17.0) gm/dL Hct 33.2 L (39.0-51.0) % Plt Count 541 H (150-450) th/mm3 MPV 6.7 L (7.0-11.0) fL Neut % (Auto) 82.9 H (16.0-70.0) % Lymph % (Auto) 7.4 L (9.0-44.0) % Neut # (Auto) 10.2 H (1.8-7.7) th/mm3 Lymph # (Auto) 0.9 L (1.0-4.8) th/mm3 Potassium 3.2 L (3.5-5.1) meq/L BUN 6 L (7-18) mg/dL Calcium 8.1 L (8.5-10.1) mg/dL Short CBC 06/03/18 Range/Units 05:20 WBC 12.3 H (4.0-11.0) th/mm3 Hgb 11.0 L (13.0-17.0) gm/dL Hct 33.2 L (39.0-51.0) % Plt Count 541 H (150-450) th/mm3 BMP 06/03/18 05:20 Sodium 138 Potassium 3.2 L Chloride 99 Carbon Dioxide 28.4 BUN 6 L Creatinine 0.78 Calcium 8.1 L <Krzysztof De H - 06/03/18 11:39> Physical Exam Vital signs: Vital Signs 06/02/18 12:00 06/02/18 16:00 06/02/18 20:00 Temperature 98.1 F 98.5 F 98.3 F Pulse Rate 100 H 89 95 H Respiratory Rate 19 20 18 Blood Pressure 136/76 138/73 121/70 Pulse Oximetry 93 L 94 L 96 06/03/18 00:00 06/03/18 04:00 06/03/18 08:00 Temperature 98.4 F 98.8 F 98.0 F Pulse Rate 93 H 93 H 88 Respiratory Rate 18 18 16 Blood Pressure 126/61 138/70 138/72 Pulse Oximetry 94 L 95 98 Intake & Output 06/02/18 06/03/18 06/03/18 18:59 06:59 18:59 Intake Total 3500 / 3500 1950 / 1950 Output Total 1000 / 1000 1550 / 1550 Balance 2500 / 2500 400 / 400 Weight 77 kg Intake: IV 3000 / 3000 1949 / 1949 LR 1000 mL Inj 1,000 ML @ 176 1000 / 1000 1950 / 1950 mls/hr IV.CONT .Q5H41M [facility] Rx#: [id number] NS Inj 1,000 ML @ 176 mls/hr IV 1999 .CONT .Q5H41M [facility] Rx#:[id number] Oral 500 / 500 Output: Urine 1000 / 1000 1550 / 1550 Other: Date of Last Bowel Movement 06/01/18 06/01/18 # Bowel Movements 0 <Donato,Jovany - 06/03/18 11:43> Vital Signs 06/02/18 12:00 06/02/18 16:00 06/02/18 20:00 Temperature 98.1 F 98.5 F 98.3 F Pulse Rate 100 H 89 95 H Respiratory Rate 19 20 18 Blood Pressure 136/76 138/73 121/70 Pulse Oximetry 93 L 94 L 96 06/03/18 00:00 06/03/18 04:00 06/03/18 08:00 Temperature 98.4 F 98.8 F 98.0 F Pulse Rate 93 H 93 H 88 Respiratory Rate 18 18 16 Blood Pressure 126/61 138/70 138/72 Pulse Oximetry 94 L 95 98 Intake & Output 06/02/18 06/03/18 06/03/18 18:59 06:59 18:59 Intake Total 3500 / 3500 1949 / 1950 Output Total 1000 / 1000 1550 / 1550 Balance 2500 / 2500 400 / 400 Weight 77 kg Intake: IV 3000 / 3000 1949 / 1950 LR 1000 mL Inj 1,000 ML @ 176 1000 / 1000 1949 / 1950 mls/hr IV.CONT .Q5H41M [facility] Rx#: [id number] NS Inj 1,000 ML @ 176 mls/hr IV 1999 .CONT .Q5H41M [facility] Rx#:[id number] Oral 500 / 500 Output: Urine 1000 / 1000 1550 / 1550 Other: Date of Last Bowel Movement 06/01/18 06/01/18 # Bowel Movements 0 <Krzysztof De H - 06/03/18 11:39> Narrative: GENERAL: Well-nourished, well-developed male lying in bed watching television in no acute distress. SKIN: Warm and dry. No rash. HEENT: Atraumatic, normocephalic with extraocular motions intact. No rhinorrhea. No visible lymphadenopathy or jugulovenous distension appreciated. CARDIOVASCULAR: Regular rate and rhythm without obvious murmurs, gallops, or rubs. 2+ pulses in all four extremities. RESPIRATORY: Mild expiratory and inspiratory wheezing bilaterally. No increased work of breathing. No crackles or rhonchi. GASTROINTESTINAL: Abdomen soft with positive bowel sounds in all 4 quadrants. Patient nontender in all 4 quadrants.. No guarding. No tenderness at McBurney' s point. Negative Nelson sign. Negative rebound tenderness. MUSCULOSKELETAL: No cyanosis or edema. No calf tenderness. Ambulating well per report. Patient endorses right flank pain worse with palpation. NEURO/PSYCH: Afocal. Awake, alert, and oriented x3. Normal speech and judgement. No tremor, diaphoresis, auditory/visual hallucinations, or paresthesia appreciated. <Krzysztof De H - 06/03/18 11:39> Assessment and Plan - Assessment (1) Pancreatitis Code(s): K85.90 - Acute pancreatitis without necrosis or infection, unspecified Status: Acute (2) Flank pain Code(s): R10.9 - Unspecified abdominal pain Status: Acute (3) Alcohol dependence Code(s): F10.20 - Alcohol dependence, uncomplicated Status: Acute (4) Oral infection Code(s): K12.2 - Cellulitis and abscess of mouth Status: Acute (5) HTN (hypertension) Code(s): I10 - Essential (primary) hypertension Status: Acute (6) HLD (hyperlipidemia) Code(s): E78.5 - Hyperlipidemia, unspecified Status: Acute (7) BPH (benign prostatic hyperplasia) Code(s): N40.0 - Benign prostatic hyperplasia without lower urinary tract symptoms Status: Acute (8) GERD (gastroesophageal reflux disease) Code(s): K21.9 - Gastro-esophageal reflux disease without esophagitis Status: Acute (9) Nutrition, metabolism, and development symptoms Code(s): R63.8 - Other symptoms and signs concerning food and fluid intake Status: Acute (10) DVT prophylaxis Status: Acute <Jovany Sewell - 06/03/18 11:43> (1) Pancreatitis Code(s): K85.90 - Acute pancreatitis without necrosis or infection, unspecified Status: Acute Plan: Patient with pancreatitis. No previous episodes. Likely secondary to alcohol. -Lipase 71033 on admission. -Lipid panel within normal limits -Diet advance to full liquid diet; nursing staff with order to advance diet to regular diet if patient tolerates full liquid lunch without complications Medications: -LR discontinued as patient is tolerating oral diet -Oxycodone 5 mg as needed for pain 1-5/oxycodone 10 mg as needed for pain 6-10 -Morphine as needed for breakthrough pain discontinued; attempt to avoid IV pain medication for possible discharge pending clinical course -Naloxone on as needed for respiratory depression (2) Flank pain Code(s): R10.9 - Unspecified abdominal pain Status: Acute Plan: Patient endorsing right-sided flank pain exacerbated by movement. Patient denies any hematuria or dysuria at this time. UA 06/02/18: 30 protein, trace leukocyte esterase, few mucus, otherwise negative (culture not indicated) UA 06/03/18: Pending (3) Alcohol dependence Code(s): F10.20 - Alcohol dependence, uncomplicated Status: Acute Plan: History of daily alcohol use, no previous withdrawal symptoms. Last drink on . -[facility] protocol (4) Oral infection Code(s): K12.2 - Cellulitis and abscess of mouth Status: Acute Plan: Patient reporting recent procedure for abscessed tooth. Patient also reports he is to be on a "penicillin antibiotic every 6 hours." -Patient initially met sepsis criteria with leukocytosis and tachycardia with suspected site of infection being his oral cavity, lactic acid was not obtained -Patient does not meet sepsis criteria at this time Medications: -Penicillin 500mg Q6H (5) HTN (hypertension) Code(s): I10 - Essential (primary) hypertension Status: Acute Plan: History of hypertension. -Continue amlodipine 10 mg daily, hydrochlorothiazide 25 mg daily, losartan 50 mg twice daily (6) HLD (hyperlipidemia) Code(s): E78.5 - Hyperlipidemia, unspecified Status: Acute Plan: History of hyperlipidemia -Lipid panel within normal limits -Continue atorvastatin 20 mg daily (7) BPH (benign prostatic hyperplasia) Code(s): N40.0 - Benign prostatic hyperplasia without lower urinary tract symptoms Status: Acute Plan: History of BPH. -Continue finasteride 5 mg daily (8) GERD (gastroesophageal reflux disease) Code(s): K21.9 - Gastro-esophageal reflux disease without esophagitis Status: Acute Plan: History of GERD -Continue omeprazole 40 mg daily (9) Nutrition, metabolism, and development symptoms Code(s): R63.8 - Other symptoms and signs concerning food and fluid intake Status: Acute Plan: Diet: Full liquid diet, nursing staff to advance to regular diet without pain/ complications when tolerating full liquid diet Fluids: Tolerating oral fluids Electrolytes: Within normal limits, continue to monitor and replete as necessary -Prophylaxis: [facility] protocol, Naloxone as needed for respiratory depression, Zofran as needed for nausea/vomiting, clonidine as needed for blood pressure greater than 180/110 (10) DVT prophylaxis Status: Acute Plan: -SCDs Medications: Heparin 5000 units every 12 hours <Krzysztof De - 06/03/18 11:31> - Attending Attestation Patient examined with resident physician and case discussed I have read the above note and agree with the assessment/plan as discussed with me I was involved in all medical decision making for this patient Jovany Sewell MD <Jovany Sewell - 06/03/18 11:43>
[2018-06-03 12:58] LABS: Bilirubin,Urine Negative (Negative); Clarity,Urine Clear (Clear); Color,Urine Straw (Yellw/Straw); Glucose,Urine (UA) Negative (Negative); Leukocyte Esterase,Urine Negative (Negative); Nitrite,Urine Negative (Negative); Specific Gravity,Urine 1.002 (1.002-1.035)
[2018-06-04] MEDS: oxyCODONE/Acetaminophen 10/325 Tablet PO PRN ×2 (06:24)
[2018-06-04 07:48] LABS: Baso % (Auto) 0.4 % (0.0-2.0); Eos # (Auto) 0.3 th/mm3 (0.0-0.4); Eos % (Auto) 2.6 % (0.0-4.0); Hematocrit 32.8 % (39.0-51.0); Hemoglobin 10.8 gm/dL (13.0-17.0); Lymph % (Auto) 9.4 % (9.0-44.0); Mean Corpuscular HGB Conc 33.1 % (32.0-36.0); Mean Corpuscular Hemoglobin 27.8 pg (27.0-34.0); Mean Corpuscular Volume 84.2 fL (80.0-100.0); Mean Platelet Volume 7.1 fL (7.0-11.0); Mono # (Auto) 0.8 th/mm3 (0.0-0.9); Mono % (Auto) 8.2 % (0.0-8.0); Neut # (Auto) 8.2 th/mm3 (1.8-7.7); Neut % (Auto) 79.4 % (16.0-70.0); Platelet Count 534 th/mm3 (150-450); Red Cell Distribution Width 16.5 % (11.6-17.2); White Blood Count 10.3 th/mm3 (4.0-11.0)
[2018-06-04 08:00] LABS: Anion Gap 9 meq/L (5-15); Blood Urea Nitrogen 7 mg/dL (7-18); Calcium 8.7 mg/dL (8.5-10.1); Chloride 100 meq/L (98-107); Glomerular Filtration Rate Greater Than 89 mL/min (>89); Glucose,Random 84 mg/dL (74-106); Potassium 3.6 meq/L (3.5-5.1); Sodium 137 meq/L (136-145)
[2018-06-04] MEDS ORDERED: Bisacodyl 10 MG Supp RECTAL PRN (08:40)
[2018-06-04] MEDS ORDERED: Senna/Docusate Sodium 8.6/50 MG Tablet PO SCH (09:00)
--- NOTE | 2018-06-04 10:18 | P.PNFP ---
Subjective Interval history: Patient seen and examined this morning. No acute events overnight. Patient states that his pain is completely resolved and like to be discharged home this morning. He reports that he tolerated a full diet both last night and this morning for breakfast. We discussed that it was likely his alcohol use that precipitated his pancreatitis. Patient was provided education on alcohol dependence and cessation. Patient states that he will "try to slow down on alcohol." He has passed a small amount of stool in continues to pass gas. He states that his chronic constipation and was previously placed on MiraLAX. Otherwise he has no acute complaints and denies a complete review of systems including but not limited to any fevers, chills, shortness of breath, chest pain , NVD, abdominal pain, or calf tenderness. <Krzysztof De H - 06/04/18 10:18> Results - Labs Result diagrams: 06/04/18 06:20 06/04/18 06:20 <Nemo Gu M - 06/04/18 12:51> Abnormal lab results 06/03/18 06/04/18 Range/Units 10:56 06:20 RBC 3.90 L (4.50-5.90) mil/mm3 Hgb 10.8 L (13.0-17.0) gm/dL Hct 32.8 L (39.0-51.0) % Plt Count 534 H (150-450) th/mm3 Neut % (Auto) 79.4 H (16.0-70.0) % [place] % (Auto) 8.2 H (0.0-8.0) % Neut # (Auto) 8.2 H (1.8-7.7) th/mm3 Urine Occult Blood Small H (Negative) Short CBC 06/04/18 Range/Units 06:20 WBC 10.3 (4.0-11.0) th/mm3 Hgb 10.8 L (13.0-17.0) gm/dL Hct 32.8 L (39.0-51.0) % Plt Count 534 H (150-450) th/mm3 BMP 06/04/18 06:20 Sodium 137 Potassium 3.6 Chloride 100 Carbon Dioxide 28.0 BUN 7 Creatinine 0.77 Calcium 8.7 Urine 06/03/18 Range/Units 10:56 Urine Color Straw (Yellw/Straw) Urine Clarity Clear (Clear) Urine pH 7.0 (5.0-8.5) Ur Specific [place] 1.002 (1.002-1.035) Urine Protein Negative (Neg-Trace) mg/dL Urine Glucose (UA) Negative (Negative) mg/dL <Nemo Gu M - 06/04/18 12:51> Abnormal lab results 06/03/18 06/04/18 Range/Units 10:56 06:20 RBC 3.90 L (4.50-5.90) mil/mm3 Hgb 10.8 L (13.0-17.0) gm/dL Hct 32.8 L (39.0-51.0) % Plt Count 534 H (150-450) th/mm3 Neut % (Auto) 79.4 H (16.0-70.0) % [place] % (Auto) 8.2 H (0.0-8.0) % Neut # (Auto) 8.2 H (1.8-7.7) th/mm3 Urine Occult Blood Small H (Negative) Short CBC 06/04/18 Range/Units 06:20 WBC 10.3 (4.0-11.0) th/mm3 Hgb 10.8 L (13.0-17.0) gm/dL Hct 32.8 L (39.0-51.0) % Plt Count 534 H (150-450) th/mm3 BMP 06/04/18 06:20 Sodium 137 Potassium 3.6 Chloride 100 Carbon Dioxide 28.0 BUN 7 Creatinine 0.77 Calcium 8.7 Urine 06/03/18 Range/Units 10:56 Urine Color Straw (Yellw/Straw) Urine Clarity Clear (Clear) Urine pH 7.0 (5.0-8.5) Ur Specific [place] 1.002 (1.002-1.035) Urine Protein Negative (Neg-Trace) mg/dL Urine Glucose (UA) Negative (Negative) mg/dL <Krzysztof De H - 06/04/18 10:18> Physical Exam Vital signs: Vital Signs 06/03/18 16:00 06/03/18 17:23 06/03/18 20:00 Temperature 97.6 F 97.9 F Pulse Rate 93 H 103 H Respiratory Rate 18 18 17 Blood Pressure 131/64 133/66 Pulse Oximetry 96 94 L 06/04/18 00:00 06/04/18 08:00 Temperature 98.3 F 98.3 F Pulse Rate 86 92 H Respiratory Rate 17 16 Blood Pressure 125/67 131/70 Pulse Oximetry 95 97 Intake & Output 06/03/18 06/04/18 06/04/18 18:59 06:59 18:59 Intake Total 720 / 720 1000 / 1000 Balance 720 / 720 1000 / 1000 Weight 77 kg Intake: IV 1000 / 1000 LR 1000 mL Inj 1,000 ML @ 176 1000 / 1000 mls/hr IV.CONT .Q5H41M [facility] Rx#: [id number] Oral 720 / 720 Other: # Voids 2 3 Date of Last Bowel Movement 06/01/18 06/03/18 <Nemo Gu M - 06/04/18 12:51> Vital Signs 06/03/18 12:00 06/03/18 16:00 06/03/18 17:23 Temperature 98.7 F 97.6 F Pulse Rate 93 H 93 H Respiratory Rate 18 18 18 Blood Pressure 139/77 131/64 Pulse Oximetry 96 96 06/03/18 20:00 06/04/18 00:00 06/04/18 08:00 Temperature 97.9 F 98.3 F 98.3 F Pulse Rate 103 H 86 92 H Respiratory Rate 17 17 16 Blood Pressure 133/66 125/67 131/70 Pulse Oximetry 94 L 95 97 Intake & Output 06/03/18 06/04/18 06/04/18 18:59 06:59 18:59 Intake Total 720 / 720 1000 / 1000 Balance 720 / 720 1000 / 1000 Weight 77 kg Intake: IV 1000 / 1000 LR 1000 mL Inj 1,000 ML @ 176 1000 / 1000 mls/hr IV.CONT .Q5H41M [facility] Rx#: [id number] Oral 720 / 720 Other: # Voids 2 3 Date of Last Bowel Movement 06/01/18 <Krzysztof De H - 06/04/18 10:18> Narrative: GENERAL: Well-nourished, well-developed male lying in bed watching television in no acute distress. SKIN: Warm and dry. No rash. HEENT: Atraumatic, normocephalic with extraocular motions intact. No rhinorrhea. No visible lymphadenopathy or jugulovenous distension appreciated. CARDIOVASCULAR: Regular rate and rhythm without obvious murmurs, gallops, or rubs. 2+ pulses in all four extremities. RESPIRATORY: Mild expiratory and inspiratory wheezing bilaterally (baseline). No increased work of breathing. No crackles or rhonchi. GASTROINTESTINAL: Abdomen soft with positive bowel sounds in all 4 quadrants. Patient nontender in all 4 quadrants. No guarding. MUSCULOSKELETAL: No cyanosis or edema. No calf tenderness. Ambulating well per report. Right flank pain resolved. No CVA tenderness. NEURO/PSYCH: Afocal. Awake, alert, and oriented x3. Normal speech and judgement. No tremor, diaphoresis, auditory/visual hallucinations, or paresthesia appreciated. <SantinoKrzysztof H - 06/04/18 10:18> Assessment and Plan - Assessment (1) Pancreatitis Code(s): K85.90 - Acute pancreatitis without necrosis or infection, unspecified Status: Acute (2) Flank pain Code(s): R10.9 - Unspecified abdominal pain Status: Acute (3) Alcohol dependence Code(s): F10.20 - Alcohol dependence, uncomplicated Status: Acute (4) Oral infection Code(s): K12.2 - Cellulitis and abscess of mouth Status: Acute (5) HTN (hypertension) Code(s): I10 - Essential (primary) hypertension Status: Acute (6) HLD (hyperlipidemia) Code(s): E78.5 - Hyperlipidemia, unspecified Status: Acute (7) BPH (benign prostatic hyperplasia) Code(s): N40.0 - Benign prostatic hyperplasia without lower urinary tract symptoms Status: Acute (8) GERD (gastroesophageal reflux disease) Code(s): K21.9 - Gastro-esophageal reflux disease without esophagitis Status: Acute (9) Nutrition, metabolism, and development symptoms Code(s): R63.8 - Other symptoms and signs concerning food and fluid intake Status: Acute (10) DVT prophylaxis Status: Acute <BrittanieNemo M - 06/04/18 12:51> (1) Pancreatitis Code(s): K85.90 - Acute pancreatitis without necrosis or infection, unspecified Status: Acute Plan: Patient with pancreatitis. No previous episodes. Likely secondary to alcohol. -Lipase 70052 on admission. -Lipid panel within normal limits -Diet advanced to regular diet overnight; patient tolerated both dinner and breakfast well without complications Medications: -LR discontinued as patient is tolerating oral diet -Oxycodone 5 mg as needed for pain 1-5/oxycodone 10 mg as needed for pain 6-10; discontinued on discharge -Naloxone on as needed for respiratory depression -Patient discharged on Gladys-Colace as needed for constipation (chronic at baseline) (2) Flank pain Code(s): R10.9 - Unspecified abdominal pain Status: Acute Plan: Patient endorsing right-sided flank pain exacerbated by movement. Patient denies any hematuria or dysuria at this time. UA 06/02/18: 30 protein, trace leukocyte esterase, few mucus, otherwise negative (culture not indicated) UA 06/03/18: Negative -06/04/18; flank pain resolved (3) Alcohol dependence Code(s): F10.20 - Alcohol dependence, uncomplicated Status: Acute Plan: History of daily alcohol use, no previous withdrawal symptoms. Last drink on . -[facility] protocol -Patient provided education on alcohol dependence and cessation; patient states he will attempt to decrease his alcohol intake (4) Oral infection Code(s): K12.2 - Cellulitis and abscess of mouth Status: Acute Plan: Patient reporting recent procedure for abscessed tooth. Patient also reports he is to be on a "penicillin antibiotic every 6 hours." -Patient initially met sepsis criteria with leukocytosis and tachycardia with suspected site of infection being his oral cavity, lactic acid was not obtained -Patient does not meet sepsis criteria at this time Medications: -Penicillin 500mg Q6H; to be continued at discharge per dentistry's prescription (5) HTN (hypertension) Code(s): I10 - Essential (primary) hypertension Status: Acute Plan: History of hypertension. -Continue amlodipine 10 mg daily, hydrochlorothiazide 25 mg daily, losartan 50 mg twice daily (6) HLD (hyperlipidemia) Code(s): E78.5 - Hyperlipidemia, unspecified Status: Acute Plan: History of hyperlipidemia -Lipid panel within normal limits -Continue atorvastatin 20 mg daily (7) BPH (benign prostatic hyperplasia) Code(s): N40.0 - Benign prostatic hyperplasia without lower urinary tract symptoms Status: Acute Plan: History of BPH. -Continue finasteride 5 mg daily (8) GERD (gastroesophageal reflux disease) Code(s): K21.9 - Gastro-esophageal reflux disease without esophagitis Status: Acute Plan: History of GERD -Continue omeprazole 40 mg daily (9) Nutrition, metabolism, and development symptoms Code(s): R63.8 - Other symptoms and signs concerning food and fluid intake Status: Acute Plan: Diet: Regular diet as tolerated Fluids: Tolerating oral fluids Electrolytes: Within normal limits, continue to monitor and replete as necessary -Prophylaxis: CIWA protocol, Naloxone as needed for respiratory depression, Zofran as needed for nausea/vomiting, clonidine as needed for blood pressure greater than 180/110 (10) DVT prophylaxis Status: Acute Plan: -SCDs Medications: Heparin 5000 units every 12 hours; discontinued at discharge <Krzysztof De - 06/04/18 10:11> - Attending Attestation The exam, history, and the medical decision-making described in the above note were completed with the assistance of the resident physician. I reviewed and agree with the findings presented. I attest that I had a [id number] encounter with the patient on the same day, and personally performed and documented my assessment and findings in the medical record. he is 100% well today. discussed with him that pancreatitis can return. he is focusing on eating less fat but hopefully he will drink less alcohol <Nemo Gu - 06/04/18 12:51>
--- NOTE | 2018-06-04 10:20 | P.DS ---
Date of admission: 06/02/18 03:46 Primary care physician: No Primary Care Physician Attending physician on discharge: Nemo Gu Anticipated date of discharge: 06/04/18 Brief History from admission: 62-year-old male admitted for pancreatitis with a lipase of 11,843. He presented to the emergency department due to abdominal pain that was progressive over 2 days that he described as stabbing and 10 out of 10 on the pain scale in the epigastric region. He does have a history of heavy alcohol use or he states that he will have several mixed drinks as well as several beers every day. He denies symptoms of withdrawal or going through withdrawals in the past. He states prior to this episode, he has been relatively healthy without any acute illness. He denies fevers or chills. He denies nausea or vomiting. He denies changes in his bowel habits such as diarrhea or constipation. He denies melena or hematochezia. DS: Diagnosis - Discharge Diagnosis (1) Pancreatitis Status: Acute (2) Flank pain Status: Acute (3) Alcohol dependence Status: Acute (4) Oral infection Status: Acute (5) HTN (hypertension) Status: Acute (6) HLD (hyperlipidemia) Status: Acute (7) BPH (benign prostatic hyperplasia) Status: Acute (8) GERD (gastroesophageal reflux disease) Status: Acute (9) Nutrition, metabolism, and development symptoms Status: Acute (10) DVT prophylaxis Status: Acute DS: Medications - Discharge Medications Prescriptions: sennosides-docusate sodium [Senna Plus] 1 tab PO BID #60 tab DS: Summary Hospital Course: Patient was admitted for pancreatitis and started on IV fluid resuscitation. Initially patient was placed n.p.o., but was then progressed to a clear liquid diet on hospital day 0. Patient tolerated clear liquids well and was then transitioned to a full liquid diet and then to a regular diet on hospital day 1 without complications. Patient's pain was managed with IV and oral medications. Patient was able to tolerate a diet without pain and was discharged on hospital day 2 (06/04/18) without the need of pain medication. Patient was thoroughly educated on alcohol cessation as this was likely the cause of his pancreatitis. Patient agreed to attempt to decrease alcohol intake at this time. Patient to follow-up with PCP within 1 week for reevaluation. All home medications were continued and patient was discharged with new prescription for Gladys-Colace to assist with his chronic constipation. - Time Spent with Patient Total time spent providing and/or coordinating discharge services: Less than 30 minutes - Quality: VTE Deep Vein Thrombosis/Pulmonary Embolism Present on Admission: No Exam Vital signs: Vital Signs 06/03/18 12:00 06/03/18 16:00 06/03/18 17:23 Temperature 98.7 F 97.6 F Pulse Rate 93 H 93 H Respiratory Rate 18 18 18 Blood Pressure 139/77 131/64 Pulse Oximetry 96 96 06/03/18 20:00 06/04/18 00:00 06/04/18 08:00 Temperature 97.9 F 98.3 F 98.3 F Pulse Rate 103 H 86 92 H Respiratory Rate 17 17 16 Blood Pressure 133/66 125/67 131/70 Pulse Oximetry 94 L 95 97 Intake & Output 06/03/18 06/04/18 06/04/18 18:59 06:59 18:59 Intake Total 720 / 720 1000 / 1000 Balance 720 / 720 1000 / 1000 Weight 77 kg Intake: IV 1000 / 1000 LR 1000 mL Inj 1,000 ML @ 176 1000 / 1000 mls/hr IV.CONT .Q5H41M [facility] Rx#: [id number] Oral 720 / 720 Other: # Voids 2 3 Date of Last Bowel Movement 06/01/18 Narrative: GENERAL: Well-nourished, well-developed male lying in bed watching television in no acute distress. SKIN: Warm and dry. No rash. HEENT: Atraumatic, normocephalic with extraocular motions intact. No rhinorrhea. No visible lymphadenopathy or jugulovenous distension appreciated. CARDIOVASCULAR: Regular rate and rhythm without obvious murmurs, gallops, or rubs. 2+ pulses in all four extremities. RESPIRATORY: Mild expiratory and inspiratory wheezing bilaterally (baseline). No increased work of breathing. No crackles or rhonchi. GASTROINTESTINAL: Abdomen soft with positive bowel sounds in all 4 quadrants. Patient nontender in all 4 quadrants. No guarding. MUSCULOSKELETAL: No cyanosis or edema. No calf tenderness. Ambulating well per report. Right flank pain resolved. No CVA tenderness. NEURO/PSYCH: Afocal. Awake, alert, and oriented x3. Normal speech and judgement. No tremor, diaphoresis, auditory/visual hallucinations, or paresthesia appreciated. Results Procedures completed during hospitalization: N/A Labs on day of discharge: Labs from last 24 hours 06/04/18 06/04/18 06/03/18 06:20 06:20 10:56 WBC 10.3 RBC 3.90 L Hgb 10.8 L Hct 32.8 L MCV 84.2 MCH 27.8 MCHC 33.1 RDW 16.5 Plt Count 534 H MPV 7.1 Neut % (Auto) 79.4 H Lymph % (Auto) 9.4 [place] % (Auto) 8.2 H Eos % (Auto) 2.6 Baso % (Auto) 0.4 Neut # (Auto) 8.2 H Lymph # (Auto) 1.0 [place] # (Auto) 0.8 Eos # (Auto) 0.3 Baso # (Auto) 0.0 WBC Differential . Differential Comment Auto diff final Sodium 137 Potassium 3.6 Chloride 100 Carbon Dioxide 28.0 Anion Gap 9 BUN 7 Creatinine 0.77 Estimated GFR Greater than 89 Random Glucose 84 Calcium 8.7 Urine Color Straw Urine Clarity Clear Urine pH 7.0 Ur Specific [place] 1.002 Urine Protein Negative Urine Glucose (UA) Negative Urine Ketones Negative Urine Occult Blood Small H Urine Nitrate Negative Urine Bilirubin Negative Urine Urobilinogen Less than 2 Ur Leukocyte Esterase Negative Urine RBC Less than 1 Urine WBC Less than 1 Micro UA Comment Culture not ind Ur Microscopic Review Not Reportable Urine Culture Comments Culture not ind - Impressions ITS Impressions Abdomen/Pelvis CT 06/02/18 01:57 CONCLUSION: 1. Nonspecific inflammatory stranding around the second and third portions of the duodenum possibly representing an acute duodenitis. 2. Diverticular disease of the descending and sigmoid colon without diverticulitis. Discharge Plan - Discharge Disposition Patient Disposition: 01 Discharge Home - Discharge Condition Condition: Stable - Discharge Order Discharge Orders: Discharge Order (Routine); Ordered 06/04/18 Ordered By: Krzysztof De - Discharge Details Anticipated Discharge Date: 06/04/18 Discharge Comment: Patient to follow up with PCP and [facility] - Physicians Team Primary Care Provider: Primary Care Anais Duque Attending Provider: Nemo Gu
[2018-06-04] MEDS: amLODIPine 10 MG Tablet PO SCH (10:56)
[2018-06-04] MEDS: hydroCHLOROthiazide 25 MG Tablet PO SCH (10:56)
[2018-06-04] MEDS: Heparin - SQ 10,000 UNITS/ML Vial SQ SCH (10:57)
[2018-06-04] MEDS: Finasteride 5 MG Tablet PO SCH (10:57)
== END 2018-06-04 11:42 | disposition home or self-care (01) ==
LOC: NEPE 21:38 → NEDA 06-02 03:46 → N06 06-02 04:55
PROVIDERS: ADMIT Family Medicine; ATTEND Family Medicine